=== PATIENT | female | born 1930 | race Caucasian/White ===

== ENCOUNTER 2017-10-28 07:45 | Outpatient (CLI) | payer OTHER | END 2017-10-28 07:49 | disposition home or self-care (01) | LOC: SONOGRAMA 07:45 | DX: E04.1 Nontoxic single thyroid nodule (principal) ==

== ENCOUNTER 2017-11-11 07:30 | Inpatient (IN) | payer OTHER ==
[~2017-11-11] VITALS: Ht 167.6 cm; Wt 45.4 kg
[2017-11-11] MEDS ORDERED: [UNRECOGNIZED DRUG - OTHER] PO (09:29)
[2017-11-11] MEDS ORDERED: VITAMIN D31 ML (09:30)
[2017-11-11] MEDS ORDERED: PEPCID40 MG PO (09:30)
[2017-11-11] MEDS ORDERED: PROBIOTIC1 EACH PO (09:30)
== END 2017-11-20 10:59 | disposition home or self-care (01) | DRG 627 ==
LOC: O/R 11-18 05:44 → SURH 11-18 05:44
PROVIDERS: Specialist
PROC: 0GTK0ZZ Resection of Thyroid Gland, Open Approach (ICD-10-PCS; principal; 2017-11-18 09:30)
DX: C73 Malignant neoplasm of thyroid gland (principal); E83.51 Hypocalcemia

== ENCOUNTER 2017-11-24 09:14 | Outpatient (CLI) | payer OTHER ==
[~2017-11-24 09:14] MED LIST: PEPCID40 MG PO; PROBIOTIC1 EACH PO; VITAMIN D31 ML; [UNRECOGNIZED DRUG - OTHER] PO
== END 2017-11-24 09:20 | disposition home or self-care (01) ==
LOC: LAB 09:14
DX: E83.51 Hypocalcemia (principal); C73 Malignant neoplasm of thyroid gland

== ENCOUNTER 2017-11-29 09:53 | Outpatient (CLI) | payer OTHER | END 2017-11-29 09:55 | disposition home or self-care (01) | LOC: LAB 09:53 | DX: E83.51 Hypocalcemia (principal) ==

== ENCOUNTER 2018-01-11 06:54 | Outpatient (CLI) | payer OTHER | END 2018-01-11 07:01 | disposition home or self-care (01) | LOC: LAB 06:54 | DX: C73 Malignant neoplasm of thyroid gland (principal); E89.0 Postprocedural hypothyroidism ==

== ENCOUNTER 2018-01-13 12:27 | Outpatient (CLI) | payer OTHER | END 2018-01-17 12:46 | disposition home or self-care (01) | LOC: NUCLEAR 12:27 | DX: C73 Malignant neoplasm of thyroid gland (principal) | CPT/HCPCS: 78018; 78020; 79005; A9517 ==